=== PATIENT | male | born 1955 | race Caucasian/White ===

== ENCOUNTER 2023-06-11 13:42 | Outpatient (OUT) | payer MEDICARE, OTHER, SELFPAY ==
[2023-06-11 14:24] LABS: Estimated Average Glucose 192 mg/dL; Glycohemoglobin A1C 8.3 % (4.5-6.2)
== END 2023-06-11 13:43 | disposition home or self-care (01) ==
LOC: LAB 13:48
PROVIDERS: PCP Internal Medicine; Visit Provider Internal Medicine
DX: E11.65 Type 2 diabetes mellitus with hyperglycemia (principal)
CPT/HCPCS: 36415; 83036

== ENCOUNTER 2023-10-15 12:04 | Outpatient (OUT) | payer MEDICARE, OTHER, SELFPAY ==
[2023-10-15 12:24] LABS: Basophils Absolute Auto 0.1 10^3/uL (0.0-0.1); Basophils Percent Auto 0.9 % (0.2-2.0); Eosinophils Absolute Auto 0.2 10^3/uL (0.0-0.7); Hematocrit 41.8 % (42.0-54.0); Hemoglobin 13.3 g/dL (14.0-18.0); Immature Granulocytes Abs Auto 0.01 10^3/uL (0.00-0.03); Immature Granulocytes Pct Auto 0.2 % (0.0-0.5); Lymphocytes Absolute Auto 1.6 10^3/uL (1.2-3.8); Mean Corpuscular HGB Conc 31.8 g/dL (29.9-35.2); Mean Corpuscular Hemoglobin 30.2 pg (25.9-34.0); Mean Platelet Volume 10.6 fL (9.5-13.5); Monocytes Absolute Auto 0.3 10^3/uL (0.3-0.8); Monocytes Percent Auto 5.9 % (1.7-12.0); Neutrophils Absolute Auto 3.6 10^3/uL (1.4-6.5); Platelet Count 212 10^3/uL (150-450); Red Cell Distribution Width 12.2 % (11.0-15.0); White Blood Count 5.8 10^3/uL (4.0-11.0)
[2023-10-15 13:32] LABS: Prostate Specific Antigen Scrn 1.39 ng/mL (<=4.00)
[2023-10-15 13:43] LABS: Microalbumin Urine Random 2.5 mg/dL (<=30.0)
[2023-10-15 13:45] LABS: Anion Gap 13.3; BUN Creatinine Ratio 19.2; Calcium 9.3 mg/dL (8.5-10.1); Carbon Dioxide 28.7 mmol/L (21.0-32.0); Chloride 103 mmol/L (98-107); Chol HDL Ratio 2.7; Cholesterol 131 mg/dL (<=200); Estimated GFR (African America >60 (>=60); Estimated GFR (Non-African Ame >60 (>=60); Glucose 205 mg/dL (74-106); HDL Cholesterol 48 mg/dL (40-60); Sodium 141 mmol/L (136-145); Triglycerides 140 mg/dL (<=150)
[2023-10-15 13:48] LABS: Estimated Average Glucose 174 mg/dL; Glycohemoglobin A1C 7.7 % (4.5-6.2)
== END 2023-10-15 12:05 | disposition home or self-care (01) ==
LOC: LAB 12:05
PROVIDERS: PCP Internal Medicine; Visit Provider Internal Medicine
DX: Z00.00 Encounter for general adult medical examination without abnormal findings (principal); E11.42 Type 2 diabetes mellitus with diabetic polyneuropathy; E78.2 Mixed hyperlipidemia; Z12.5 Encounter for screening for malignant neoplasm of prostate; R53.83 Other fatigue
CPT/HCPCS: 36415; 80048; 80061; 82043; 83036; 85025; G0103

== ENCOUNTER 2024-06-12 12:43 | Outpatient (OUT) | payer MEDICARE, OTHER, SELFPAY ==
--- OUTSIDE RECORDS SUMMARY | 2024-06-12 12:50 | XMS_ITS | CCD ---
Author Organization [facility] Care Team Providers Care Patient Service Specialist Name Role Phone Darvin Kothari Unavailable Kassi Ramirez Unavailable ISRAEL, DR PATEL Attending Unavailable ISRAEL, DR PATEL Consulting Unavailable ISRAEL, DR PATEL Primary Care Unavailable ISRAEL, DR PATEL Admitting Unavailable Eugene Culver Unavailable Lainey Blanton Attending Unavailable Lainey Blanton Admitting Unavailable Eugene Culver Primary Care Unavailable Allergies Allergy Classification Reported Allergen(s) Allergy Type Date of Onset Reaction(s) Facility (20 sources) Penicillin V Drug Allergy Unknown [facility] Other (3 sources) patient allergy list reviewed by nurse or physicia Propensity to adverse reactions 3 Comment:Done [facility] Other (1 source) Penicillin Drug Allergy 4 [facility] (1 source) Penicillins Drug allergy (disorder) 4 [facility] Medications Current Medications Medication Drug Class(es) Dates Sig (Normalized) Sig (Original) Accu-Chek Compact Plus (12 sources) Accu-Chek Compac t Plus TEST STRIPES Active atorvastatin 40 mg oral tablet (20 sources) HMG-CoA Reductase Inhibitor take 1 tablet by mouth every twenty-four hours Atorvastatin Calcium 40 MG 1 tablet Orally Once a day for 90 days Active escitalopram 10 mg oral tablet (13 sources) Serotonin Reuptake Inhibitor take 0.5 tablet by mouth once daily, then take 1 tablet by mouth once daily at bedtime Escitalopram Oxalate 10 MG TAKE 1/2 TABLET BY MOUTH DAILY FOR THE FIRST WEEK, THEN TAKE ONE TABLET BY MOUTH EVERY NIGHT AT BEDTIME for 30 Active take 1 tablet by brennan th every twenty-four hours Escitalopram Oxalate 10 MG 1 tablet Oral ly Once a day Active glimepiride 4 mg oral tablet (20 sources) Sulfonylurea Glimepiride 4 MG 1 1/2 tablet taken 30 minutes prior to bkfst Orally Once a day Active take 1 tablet by brennan th every twenty-four hours Glimepiride 2 MG 1 tablet with breakfast or the first main meal of the day Orally Once a day Active take 1 tablet by brennan th every twenty-four hours Glimepiride 1 MG 1 tablet with breakfast or the first main meal of the day Orally Once a day Active metFORMIN hydrochloride 500 mg oral tablet (20 sources) Biguanide take 1 tablet by mouth twice daily metFORMIN HCl 500 MG TAKE ONE TABLET BY MOUTH TWICE A DAY Active take 2 tablets by mo ut every twenty-four hours metFORMIN HCl 500 MG 2 tablet with a meal Orally Once a day Active take 1 tablet by brennan th every twenty-four hours metFORMIN HCl 500 MG 1 tablet with a meal Orally Once a day Active metroNIDAZOLE 500 mg oral tablet (2 sources) Nitroimidazole Antimicrobial Start: 09-10-2023 take 1 tablet by mouth every eight hours metroNIDAZOLE 500 MG 1 tablet Orally Three times a day for 7 days Aug, Active pioglitazone 30 mg oral tablet (9 sources) Peroxisome Proliferator Receptor alpha Agonist, Peroxisome Proliferator Receptor gamma Agonist, Thiazolidinedione Start: 10-19-2023 take 1 tablet by mouth every twenty-four hours Pioglitazone HCl 30 MG 1 tablet Orally Once a day for 30 days Oct, Active Start: 06-11-2023 take 1 tablet by brennan th every twenty-four hours Pioglitazone HCl 15 MG 1 tablet Orally Once a day May, Active sildenafil 100 mg oral tablet (12 sources) Phosphodiesterase 5 Inhibitor take 1 tablet by mouth every twenty-four hours Sildenafil Citrate 100 MG 1 tablet as needed Orally Once a day Active Completed/Discontinued Medications Medication Drug Class(es) Dates Sig (Normalized) Sig (Original) Aspir-81 81 MG (20 sources) take 1 tablet by brennan th once daily as needed Aspir-81 81 MG 1 tablet Orally Once a day for 30 day(s) Not-Taking/PRN take 1 tablet by mouth once aayush y Aspir-81 81 MG 1 tablet Orally Once a day for 30 day(s) Not-Taking take 1 tablet by mouth once aayush y Aspir-81 81 MG 1 tablet Orally Once a day for 30 day(s) Active diclofenac sodium 75 mg delayed release oral tablet (20 sources) Nonsteroidal Anti-inflammatory Drug take 1 tablet by mouth every twenty-four hours Diclofenac Sodium 75 MG 1 tablet Orally Once a day for 30 day(s) Not-Taking/PRN Doxycycline (13 sources) Tetracycline-class Drug Doxycycl ine Not-Taking/PRN Doxycycline Not- Taking Doxycycline Acti ve TENS Unit (19 sources) Start: 08-28-2021 TENS Unit Use as directed. Aug, Not-Taking/PRN Start: 08-28-2021 TENS Unit Use as directed. Aug, Not-Taking Start: 08-28-2021 TENS Unit Use as directed. Aug, Active Triamcinolone (16 sources) Corticosteroid Start: 12-22-2021 Kenalog -40 mg Dec, 60 mg Problems Active Problems Problem Classification Problem Date Documented Date Episodic/Chronic Anxiety disorders (17 sources) Generalized anxiety disorder; Translations: [Generalized anxiety disorder] Chronic Diabetes mellitus with complications (20 sources) Type 2 diabetes mellitus with hyperglycemia; Translations: [Polyneuropathy due to type 2 diabetes mellitus] Onset: 07-08-2022 Chronic Diabetes mellitus without complication (3 sources) Type 2 diabetes mellitus without complication; Translations: [Diabetes mellitus without mention of complication, type II or unspecified type, not stated as uncontrolled] Onset: 07-18-2014 Chronic Disorders of lipid metabolism (20 sources) Mixed hyperlipidemia; Translations: [Mixed hyperlipidemia] Onset: 07-18-2014 Chronic Disorders of teeth and jaw (6 sources) Periapical abscess without sinus tract; Translations: [Abscessed tooth] Episodic Essential hypertension (11 sources) Essential (primary) hypertension; Translations: [Essential hypertension] Onset: 07-07-2022 Chronic Genitourinary symptoms and ill-defined conditions (12 sources) Nocturia; Translations: [Nocturia] Episodic Headache; including migraine (3 sources) Headache; Translations: [Headache, unspecified] Episodic Hyperplasia of prostate (20 sources) Lower urinary tract symptoms due to benign prostatic hypertrophy; Translations: [Benign prostatic hyperplasia with lower urinary tract symptoms] Onset: 07-18-2014 Chronic Malaise and fatigue (1 source) Other fatigue Episodic Neoplasms of unspecified nature or uncertain behavior (3 sources) Neoplastic disease of uncertain behavior; Translations: [Neoplasm of unspecified behavior of bone, soft tissue, and skin] Episodic Osteoarthritis (7 sources) Localized, primary osteoarthritis of the hand; Translations: [Primary osteoarthritis, right hand] Chronic Other aftercare (1 source) Other long distance operator (current) drug therapy; Translations: [OTH MARKETING TRAINEE CURRENT DRUG THERAPY] Onset: 07-08-2022 Episodic Other aftercare (12 sources) H/O: high risk medication; Translations: [Other residential (current) drug therapy] Episodic Other aftercare (3 sources) Long-term current use of drug therapy; Translations: [Other long distance operator (current) drug therapy] Episodic Other circulatory disease (1 source) Elevated blood-pressure reading, without diagnosis of hypertension Episodic Other connective tissue disease (10 sources) Myofascial pain; Translations: [Myalgia, other site] Episodic Other connective tissue disease (18 sources) Dupuytren's contracture; Translations: [Palmar fascial fibromatosis [Dupuytren]] Episodic Other connective tissue disease (1 source) Trigger finger, right index finger Episodic Other connective tissue disease (2 sources) Palmar fascial fibromatosis [Dupuytren] Episodic Other diseases of veins and lymphatics (18 sources) Peripheral venous insufficiency; Translations: [Venous insufficiency (chronic) (peripheral)] Onset: 04-28-2016 Episodic Other diseases of veins and lymphatics (1 source) Venous insufficiency (chronic) (peripheral) Episodic Other injuries and conditions due to external causes (3 sources) History of fall; Translations: [History of falling] Episodic Other male genital disorders (15 sources) Impotence of organic origin; 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] Onset: 04-28-2016 Chronic Other nervous system disorders (13 sources) Chronic pain; Translations: [Other chronic pain] Chronic Other nervous system disorders (7 sources) Other chronic pain; Translations: [Chronic pain G89.29] Onset: 08-01-2021 Resolved: 01-19-2022 Chronic Other nervous system disorders (6 sources) Intercostal neuralgia; 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] Chronic Other nervous system disorders (1 source) Other specified mononeuropathies Onset: 01-19-2022 Resolved: 01-19-2022 Chronic Other nutritional; endocrine; and metabolic disorders (9 sources) Obese class I; Translations: [Body mass index (BMI) 32.0-32.9, adult] Onset: 10-18-1959 Chronic Other nutritional; endocrine; and metabolic disorders (3 sources) Obesity; Translations: [Obesity, unspecified] Chronic Other nutritional; endocrine; and metabolic disorders (3 sources) Simple obesity ; Translations: [Other obesity due to excess calories] Onset: 10-18-1959 Chronic Other nutritional; endocrine; and metabolic disorders (15 sources) Overweight; Translations: [Overweight] Onset: 03-28-2021 Episodic Other nutritional; endocrine; and metabolic disorders (1 source) Overweight Episodic Other screening for suspected conditions (not mental disorders or infectious disease) (15 sources) Encounter for screening for malignant neoplasm of prostate; Translations: [Prostate specific antigen measurement] Onset: 07-08-2022 Episodic Other upper respiratory infections (3 sources) Acute maxillary sinusitis; Translations: [Acute maxillary sinusitis, unspecified] Episodic Spondylosis; intervertebral disc disorders; other back problems (20 sources) Cervical spondylosis with radiculopathy; Translations: [Other spondylosis with radiculopathy, cervical region] Onset: 08-01-2021 Resolved: 12-17-2021 Chronic Spondylosis; intervertebral disc disorders; other back problems (20 sources) Dorsalgia, unspecified; Translations: [Backache] Onset: 08-14-2021 Resolved: 12-22-2021 Episodic Substance-related disorders (12 sources) Tobacco user; Translations: [Nicotine dependence, cigarettes, in remission] Chronic Unclassified (5 sources) Gingival recession, moderate; Translations: [Gingival recession, moderate] Unclassified (1 source) Contact with and (suspected) exposure to covid-19; Translations: [Contact with and (suspected) exposure to covid-19] Unclassified (3 sources) Elevation of levels of liver transaminase levels; Translations: [Elevation of levels of liver transaminase levels] Unclassified (1 source) Primary osteoarthritis, right hand; Translations: [Primary osteoarthritis, right hand] Onset: 12-22-2023 Past or Other Problems Problem Classification Problem Date Documented Date Episodic/Chronic Other connective tissue disease (3 sources) Myalgia, other site Onset: 08-28-2021 Resolved: 01-19-2022 Episodic Other liver diseases (3 sources) Elevated levels of transaminase & lactic acid dehydrogenase; Translations: [Nonspecific elevation of levels of transaminase or lactic acid dehydrogenase (LDH)] Onset: 01-29-2016 Episodic Other nervous system disorders (5 sources) Atypical facial pain; Translations: [Atypical face pain] Episodic Residual codes; unclassified (3 sources) Tobacco user; Translations: [Nondependent tobacco use disorder] Onset: 01-29-2016 Episodic Unclassified (1 source) Contact with and (suspected) exposure to covid-19 Z20.822 Onset: 06-21-2022 Resolved: 06-21-2022 Unclassified (3 sources) Exposure to acute respiratory syndrome coronavirus 2; Translations: [Contact with and (suspected) exposure to covid-19] Unclassified (12 sources) Elevated transaminase level; Translations: [Elevated transaminase level] Viral infection (1 source) COVID-19 Onset: 06-21-2022 Resolved: 06-21-2022 Results Test Name Value Interpretation Reference Range Facility XR hand RT min 3V*on 024 XR hand RT min 3V* [facility] Main [place] [address] [place] [address] XRay Report Signed Patient: Max Chavira MR#: [id number] : 1955 Acct:[id number] Age/Sex: 68 / M ADM Date: 12/22/23 Loc: [facility] Room: Type: [facility] Attending Dr: Lainey Blanton MD Copies to: Lainey Blanton MD Ordering Provider: Lainey Blanton MD Date of Service: 12/22/23 XR/XR hand RT min 3V*: M19.041 - Primary osteoarthritis, right hand RIGHT HAND - 4 views REASON FOR EXAM: Second digit contracture for 3 years COMPARISON: None FINDINGS: No focal soft tissue abnormality. No acute bony process is seen. Carpus demonstrates degenerative changes most prominent at the CMC joint of the thumb. MCP joints demonstrate degenerative change with joint space narrowing particularly involving the second and third MCP joints. IP joints demonstrate degenerative change most prominent involving the DIP joints. No bony erosions. XR/XR hand RT min 3V* IMPRESSION: SCATTERED DEGENERATIVE CHANGES MOST SEVERE AT THE CMC JOINT OF THE THUMB OF THE RIGHT HAND WITHOUT ACUTE BONY PROCESS. Impression dictated by: Edwin Leung Jr., D.OFran12/22/2023 3:45 PM Dictation Location: [place] [address] Transcribed By: [facility] 12/22/23 1545 Dictated By: Edwin Leung Jr, DO 12/22/23 1544 Signed By: 12/22/23 1545 Normal [facility] MICROALBUMIN URINEon 022 Albumin, Urine 52.2 ug/mL Normal Not Estab. [facility] Comment on above: Performed By: #### M ALBLC #### [facility] [address] [place] [address] Dr. Anne-Marie Parikh CBC AUTO DIFFon 07-07-2022 BASO # 0.0 103/ul Normal 0.0-0.1 [facility] Comment on above: Performed By: #### C BC #### [facility] [address] [place] [address] Dr. Anne-Marie Parikh Basophils/100 WBC (Bld) 0.6 % Normal 0.2-2.0 [facility] Comment on above: Performed By: #### C BC #### [facility] [address] [place] [address] Dr. Anne-Marie Parikh EO # 0.1 103/ul Normal 0.0-0.7 [facility] Comment on above: Performed By: #### C BC #### [facility] [address] [place] [address] Dr. Anne-Marie Parikh Eosinophils/100 WBC (Bld) 1.9 % Normal 0.9-7.0 [facility] Comment on above: Performed By: #### C BC #### [facility] [address] [place] [address] Dr. Anne-Marie Parikh Erythrocyte distribution width (RBC) [Ratio] 11.9 % Normal 11.0-15.0 [facility] Comment on above: Performed By: #### C BC #### [facility] [address] [place] [address] Dr. Anne-Marie Parikh Hematocrit (Bld) [Volume fraction] 43.1 % Normal 42.0-54.0 [facility] Comment on above: Performed By: #### C BC #### [facility] [address] [place] [address] Dr. Anne-Marie Parikh Hemoglobin (Bld) [Mass/Vol] 14.0 g/dL Normal 14.0-18.0 [facility] Comment on above: Performed By: #### C BC #### [facility] [address] [place] [address] Dr. Anne-Marie Parikh IG # 0.03 10e3/ul Normal 0.00-0.03 [facility] Comment on above: Performed By: #### C BC #### [facility] [address] [place] [address] Dr. Anne-Marie Parikh IG % 0.4 % Normal 0.0-0.5 [facility] Comment on above: Performed By: #### C BC #### [facility] [address] [place] [address] Dr. Anne-Marie Parikh LYMPH # 1.5 103/ul Normal 1.2-3.8 [facility] Comment on above: Performed By: #### C BC #### [facility] [address] [place] [address] Dr. Anne-Marie Parikh Lymphocytes/100 WBC (Bld) 21.1 % Normal 20.5-60.0 [facility] Comment on above: Performed By: #### C BC #### [facility] [address] [place] [address] Dr. Anne-Marie Parikh MANUAL DIFF REQ NO Normal [facility] Comment on above: Performed By: #### C BC #### [facility] [address] [place] [address] Dr. Anne-Marie Parikh MCH (RBC) [Entitic mass] 29.5 pg Normal 25.9-34.0 [facility] Comment on above: Performed By: #### C BC #### [facility] [address] [place] [address] Dr. Anne-Marie Parikh MCHC (RBC) [Mass/Vol] 32.5 g/dL Normal 29.9-35.2 [facility] Comment on above: Performed By: #### C BC #### [facility] [address] [place] [address] Dr. Anne-Marie Parikh MCV (RBC) [Entitic vol] 90.9 fL Normal 80.0-94.0 [facility] Comment on above: Performed By: #### C BC #### [facility] [address] [place] [address] Dr. Anne-Marie Parikh MONO # 0.5 103/ul Normal 0.3-0.8 [facility] Comment on above: Performed By: #### C BC #### [facility] [address] [place] [address] Dr. Anne-Marie Parikh Monocytes/100 WBC (Bld) 6.5 % Normal 1.7-12.0 [facility] Comment on above: Performed By: #### C BC #### [facility] [address] [place] [address] Dr. Anne-Marie Parikh NEUT # 5.0 103/ul Normal 1.4-6.5 [facility] Comment on above: Performed By: #### C BC #### [facility] [address] [place] [address] Dr. Anne-Marie Parikh Neutrophils/100 WBC (Bld) 69.5 % Normal 43.0-75.0 [facility] Comment on above: Performed By: #### C BC #### [facility] [address] [place] [address] Dr. Anne-Marie Parikh Platelet mean volume (Bld) [Entitic vol] 10.3 fL Normal 9.5-13.5 [facility] Comment on above: Performed By: #### C BC #### [facility] [address] [place] [address] Dr. Anne-Marie Parikh PLT 227 103/ul Normal 150-450 [facility] Comment on above: Performed By: #### C BC #### [facility] [address] [place] [address] Dr. Anne-Marie Parikh RBC 4.74 106/ul Normal 4.70-6.10 [facility] Comment on above: Performed By: #### C BC #### [facility] [address] [place] [address] Dr. Anne-Marie Parikh WBC 7.2 103/ul Normal 4.0-11.0 [facility] Comment on above: Performed By: #### C BC #### [facility] [address] [place] [address] [address] Anne-Marie Parikh GLYCOHEMOGLOBIN A1Con 2021 ADA RECOMMENDATION SEE BELOW Normal [facility] Comment on above: Result Comment: ADA RECOMMENDED LIMIT 4.0 - 6.0 ADA THERAPEUTIC TARGET < 7.0 ACTION SUGGESTED > 7.0 Performed By: #### A 1C #### [facility] [address] [place] [address] [address] Anne-Marie Parikh Glucose [Mass/Vol] 180 mg/dL Normal [facility] Comment on above: Performed By: #### A 1C #### [facility] [address] [place] [address] Dr. Anne-Marie Parikh HbA1c (Bld) [Mass fraction] 7.9 % Critically high 4.5-6.2 [facility] Comment on above: Performed By: #### A 1C #### [facility] [address] [place] [address] Dr. Anne-Marie Parikh LIPID PROFILEon 07-07-2022 CHOL-HDL RATIO NORM SEE BELOW Normal [facility] Comment on above: Result Comment: 3.3 - 4.4 LOW RISK 4.4 - 7.1 AVERAGE RISK 7.1 - 11.0 MODERATE RISK >11.0 HIGH RISK Performed By: #### A LT, LIPID, BMP #### [facility] [address] [place] [address] Dr. Anne-Marie Parikh Cholesterol [Mass/Vol] 143 mg/dL Normal <=200 [facility] Comment on above: Performed By: #### A LT, LIPID, BMP #### [facility] [address] [place] [address] Dr. Anne-Marie Parikh Cholesterol in HDL [Mass/Vol] 48 mg/dL Normal 40-60 [facility] Comment on above: Performed By: #### A LT, LIPID, BMP #### [facility] [address] [place] [address] Dr. Anne-Marie Parikh Cholesterol in LDL [Mass/Vol] 73.4 mg/dL Normal [facility] Comment on above: Performed By: #### A LT, LIPID, BMP #### [facility] [address] [place] [address] [address] Anne-Marie Parikh Cholesterol.total/Ch olesterol in HDL [Mass ratio] 3.0 {ratio} Normal [facility] Comment on above: Performed By: #### A LT, LIPID, BMP #### [facility] [address] [place] [address] [address] Anne-Marie Parikh HDL NORMAL > or = 60 mg/dl - LOW CARDIOVASCULAR RISK <40 mg/dl - HIGH CARDIOVASCULAR RISK Normal [facility] Comment on above: Performed By: #### A LT, LIPID, BMP #### [facility] [address] [place] [address] Dr. Anne-Marie Parikh LDL CALC NORMAL SEE BELOW Normal [facility] Comment on above: Result Comment: <100 mg/dl OPTIMAL 100 - 129 mg/dl NEAR OR ABOVE OPTIMAL 130 - 159 mg/dl BORDERLINE HIGH 160 - 189 mg/dl HIGH >190 mg/dl VERY HIGH Performed By: #### A LT, LIPID, BMP #### [facility] [address] [place] [address] Dr. Anne-Marie Parikh Triglyceride [Mass/Vol] 108 mg/dL Normal <=150 [facility] Comment on above: Performed By: #### A LT, LIPID, BMP #### [facility] [address] [place] [address] Dr. Anne-Marie Parikh VLDL CALC 21.6 mg/dL Normal [facility] Comment on above: Performed By: #### A LT, LIPID, BMP #### [facility] [address] [place] [address] Dr. Anne-Marie Parikh PROF CHEM 8 (BAS METB)on Anion gap [Moles/Vol] 12.0 mmol/L Normal [facility] Comment on above: Performed By: #### A LT, LIPID, BMP #### [facility] [address] [place] [address] Dr. Anne-Marie Parikh Calcium [Mass/Vol] 9.0 mg/dL Normal 8.5-10.1 [facility] Comment on above: Performed By: #### A LT, LIPID, BMP #### [facility] [address] [place] [address] [address] Anne-Marie Parikh Chloride [Moles/Vol] 104 mmol/L Normal 98-107 [facility] Comment on above: Performed By: #### A LT, LIPID, BMP #### [facility] [address] [place] [address] [address] Anne-Marie Parikh CO2 [Moles/Vol] 28.2 mmol/L Normal 21.0-32.0 [facility] [facility] Comment on above: Performed By: #### A LT, LIPID, BMP #### [facility] [address] [address] [address] Anne-Marie Parikh Creatinine [Mass/Vol] 0.88 mg/dL Normal 0.70-1.30 [facility] [place] Comment on above: Performed By: #### A LT, LIPID, BMP #### [facility] [address] [place] [address] Dr. Anne-Marie Parikh EGFR-AF PERUVIAN >60 Normal >=60 [facility] Comment on above: Performed By: #### A LT, LIPID, BMP #### [facility] [address] [place] [address] Dr. Anne-Marie Parikh EGFR-NON AF PERUVIAN >60 Normal >=60 [facility] [place] Comment on above: Performed By: #### A LT, LIPID, BMP #### [facility] [address] [address] [address] Anne-Marie Parikh Glucose [Mass/Vol] 190 mg/dL Critically high 74-106 [facility] Comment on above: Performed By: #### A LT, LIPID, BMP #### [facility] [address] [address] [address] Anne-Marie Parikh Potassium [Moles/Vol] 4.2 mmol/L Normal 3.5-5.1 [facility] [place] Comment on above: Performed By: #### A LT, LIPID, BMP #### [facility] [address] [address] [address] Anne-Marie Parikh Sodium [Moles/Vol] 140 mmol/L Normal 136-145 [facility] Comment on above: Performed By: #### A LT, LIPID, BMP #### [facility] [address] [address] [address] Anne-Marie Parikh Urea nitrogen [Mass/Vol] 10.0 mg/dL Normal 7.0-18.0 [facility] [place] Comment on above: Performed By: #### A LT, LIPID, BMP #### [facility] [address] [address] [address] Anne-Marie Parikh Urea nitrogen/Creatinine [Mass ratio] 11.4 mg/mg Normal [facility] [place] Comment on above: Performed By: #### A LT, LIPID, BMP #### [facility] [address] [address] [address] Anne-Marie Parikh [facility] 07-07-2022 ALT [Catalytic activity/Vol] 45 U/L Normal 16-63 [facility] [place] Comment on above: Performed By: #### A LT, LIPID, BMP #### [facility] [address] [address] [address] Anne-Marie Parikh SARS-CoV-2 (COVID-19) RNA NA A+probe Ql (Resp)on 06-21-2022 SARS-CoV-2 (COVID-19) RNA NADJA+probe Ql (Unsp spec) Positive [facility] Other Vital Signs Date Time Vital Sign Value Performing Clinician Facility 09-10-2023 11:45-0500 Body height 184.78 cm Eugene FeeFighters Other [facility] Other 09-10-2023 11:45-0500 Body mass index (BMI) [Ratio] 30.79 kg/m2 Eugene FeeFighters Other [facility] Other 09-10-2023 11:45-0500 Body weight 105.14 kg Eugene FeeFighters Other [facility] Other 09-10-2023 11:45-0500 Diastolic blood pressure 71 mm[Hg] Eugene FeeFighters Other [facility] Other 09-10-2023 11:45-0500 Systolic blood pressure 116 mm[Hg] Eugene Ball Other [facility] Other 07-09-2023 09:30-0400 Body height 184.78 cm Eugene Ball Other [facility] Other 07-09-2023 09:30-0400 Body mass index (BMI) [Ratio] 30.39 kg/m2 Eugene Ball Other [facility] Other 07-09-2023 09:30-0400 Body weight 103.78 kg Eugene Ball Other [facility] Other 07-09-2023 09:30-0400 Diastolic blood pressure 75 mm[Hg] Eugene Ball Other [facility] Other 07-09-2023 09:30-0400 Respiratory rate 12 /min Eugene Ball Other [facility] Other 07-09-2023 09:30-0400 Systolic blood pressure 129 mm[Hg] Eugene Ball Other [facility] Other 11-06-2022 10:00-0500 Body height 184.78 cm Eugene Ball Other [facility] Other 11-06-2022 10:00-0500 Body mass index (BMI) [Ratio] 28.98 kg/m2 Eugene Ball Other [facility] Other 11-06-2022 10:00-0500 Body weight 98.98 kg Eugene Ball Other [facility] Other 11-06-2022 10:00-0500 Diastolic blood pressure 62 mm[Hg] Eugene Ball Other [facility] Other 11-06-2022 10:00-0500 Respiratory rate 12 /min Eugene Ball Other [facility] Other 11-06-2022 10:00-0500 Systolic blood pressure 112 mm[Hg] Eugene Ball Other [facility] Other 06-21-2022 15:10-0400 Body height 184.78 cm Kassi Ramirez Other [facility] Other 06-21-2022 15:10-0400 Body mass index (BMI) [Ratio] 28.03 kg/m2 Kassi Ashley Other [facility] Other 06-21-2022 15:10-0400 Body temperature 97.1 [degF] Kassi Carrizalesmond Other [facility] Other 06-21-2022 15:10-0400 Body weight 95.71 kg Kassi Carrizalesmond Other [facility] Other 06-21-2022 15:10-0400 Respiratory rate 18 /min Kassi Carrizalesmond Other [facility] Other 06-21-2022 15:10-0400 SaO2% (BldA) [Mass fraction] 94 % Kassi Carrizalesmond Other [facility] Other 01-19-2022 17:30-0400 Body height 184.78 cm Darvin Kothari Other [facility] Other 01-19-2022 17:30-0400 Body mass index (BMI) [Ratio] 28.08 kg/m2 Darvin Kothari Other [facility] Other 01-19-2022 17:30-0400 Body weight 95.89 kg Darvin Kothari Other [facility] Other 01-19-2022 17:30-0400 Diastolic blood pressure 62 mm[Hg] Darvin Taye Other [facility] Other 01-19-2022 17:30-0400 SaO2% (BldA) [Mass fraction] 97 % Darvin Taye Other [facility] Other 01-19-2022 17:30-0400 Systolic blood pressure 104 mm[Hg] Darvin Taye Other [facility] Other 12-22-2021 17:00-0500 Body height 184.78 cm Darvin Kothari Other [facility] Other 12-22-2021 17:00-0500 Diastolic blood pressure 60 mm[Hg] Darvin Taye Other [facility] Other 12-22-2021 17:00-0500 SaO2% (BldA) [Mass fraction] 97 % Darvin Taye Other [facility] Other 12-22-2021 17:00-0500 Systolic blood pressure 110 mm[Hg] Darvin Taye Other [facility] Other 12-17-2021 14:00-0500 Body height 184.78 cm Darvin Kothari Other [facility] Other 12-17-2021 14:00-0500 Body mass index (BMI) [Ratio] 28.61 kg/m2 Darvin Kothari Other [facility] Other 12-17-2021 14:00-0500 Body weight 97.71 kg Darvin Kothari Other [facility] Other 12-17-2021 14:00-0500 Diastolic blood pressure 68 mm[Hg] Darvin Taye Other [facility] Other 12-17-2021 14:00-0500 SaO2% (BldA) [Mass fraction] 95 % Darvin Kothari Other [facility] Other 12-17-2021 14:00-0500 Systolic blood pressure 124 mm[Hg] Darvin Kothari Other [facility] Other 09-29-2021 17:45-0500 Body height 184.78 cm Darvin Kothari Other [facility] Other 09-29-2021 17:45-0500 Body mass index (BMI) [Ratio] 27.89 kg/m2 Darvinrufina Kothari Other [facility] Other 09-29-2021 17:45-0500 Body weight 95.26 kg Darvin Kothari Other [facility] Other 09-29-2021 17:45-0500 SaO2% (BldA) [Mass fraction] 98 % Darvin Kothari Other [facility] Other 08-28-2021 17:15-0500 Body height 184.78 cm Darvin Kothari Other [facility] Other 08-28-2021 17:15-0500 Body mass index (BMI) [Ratio] 27.76 kg/m2 Darvin Kothari Other [facility] Other 08-28-2021 17:15-0500 Body weight 94.8 kg Darvin Kothari Other [facility] Other 08-28-2021 17:15-0500 Diastolic blood pressure 80 mm[Hg] Darvin Kothari Other [facility] Other 08-28-2021 17:15-0500 Systolic blood pressure 110 mm[Hg] Darvin Kothari Other [facility] Other 08-14-2021 17:45-0400 Body height 184.78 cm Darvin Kothari Other [facility] Other 08-14-2021 17:45-0400 Body mass index (BMI) [Ratio] 28.19 kg/m2 Darvin Kothari Other [facility] Other 08-14-2021 17:45-0400 Body weight 96.25 kg Darvin Kothari Other [facility] Other 08-14-2021 17:45-0400 Diastolic blood pressure 72 mm[Hg] Darvin Kothari Other [facility] Other 08-14-2021 17:45-0400 Respiratory rate 18 /min Darvin Kothari Other [facility] Other 08-14-2021 17:45-0400 SaO2% (BldA) [Mass fraction] 95 % Darvin Kothari Other [facility] Other 08-14-2021 17:45-0400 Systolic blood pressure 126 mm[Hg] Darvin Kothari Other [facility] Other 08-01-2021 12:00-0400 Body height 184.78 cm Darvin Kothari Other [facility] Other 08-01-2021 12:00-0400 Body mass index (BMI) [Ratio] 28.16 kg/m2 Darvin Kothari Other [facility] Other 08-01-2021 12:00-0400 Body weight 96.16 kg Darvin Kothari Other [facility] Other 08-01-2021 12:00-0400 Diastolic blood pressure 80 mm[Hg] Darvin Kothari Other [facility] Other 08-01-2021 12:00-0400 Systolic blood pressure 134 mm[Hg] Darvin Kothari Other [facility] Other Encounters Encounter Date Encounter Type Care Provider Facility Start: 12-22-2023 End: 12-22-2023 ambulatory Lainey Blanton Facility:[facility] Start: 10-16-2023 End: 10-16-2023 ambulatory Eugene Culver Other [facility] Start: 10-16-2023 Telephone encounter Eugene Culver [facility] Start: 09-10-2023 End: 09-10-2023 ambulatory Eugene Ball Other [facility] Start: 09-10-2023 Office outpatient vi sit 15 minutes Eugene Israel [facility] Start: 08-02-2023 End: 08-02-2023 ambulatory Eugene Ball Other [facility] Start: 08-02-2023 Telephone encounter Eugene Culver [facility] Start: 07-22-2023 End: 07-22-2023 ambulatory Eugene Ball Other [facility] Other Start: 07-22-2023 Telephone encounter Eugene Culver [facility] Start: 07-14-2023 End: 07-14-2023 ambulatory Eugene Ball Other [facility] Start: 07-14-2023 Telephone encounter Eugene Ball [facility] Start: 07-09-2023 End: 07-09-2023 ambulatory Eugene Ball Other [facility] Start: 07-09-2023 Patient encounter procedure Eugene Culver [facility] Start: 07-06-2023 End: 07-06-2023 ambulatory Eugene Ball Other [facility] Start: 07-06-2023 Telephone encounter Eugene Ball [facility] Start: 06-14-2023 End: 06-14-2023 ambulatory Eugeen Ball Other [facility] Other Start: 06-14-2023 Telephone encounter Eugene Ball [facility] Start: 06-11-2023 End: 06-11-2023 ambulatory Eugene Ball Other [facility] Start: 06-11-2023 Telephone encounter Eugene Ball [facility] Start: 02-18-2023 End: 02-18-2023 ambulatory Eugene Ball Other [facility] Other Start: 02-18-2023 Telephone encounter Eugene Ball [facility] Start: 11-09-2022 End: 11-09-2022 ambulatory Eugene Ball Other [facility] Start: 11-09-2022 Telephone encounter Eugene Ball [facility] Start: 11-06-2022 End: 11-06-2022 ambulatory Eugene Culver Other [facility] Other Start: 11-06-2022 Office outpatient vi sit 25 minutes Eugene LAW [facility] Start: 07-07-2022 End: 07-08-[address] EUGENE CULVER Facility: Start: 06-21-2022 End: 06-21-2022 ambulatory Kassi Ramirez Other [facility] Start: 06-21-2022 Office outpatient vi sit 25 minutes Kassi Ashley [facility] Start: 06-02-2022 Adult health examination Eugene Culver Other [facility] Other Start: 02-03-2022 (Procedure) Short Darvin Kothari [facility] Start: 02-03-2022 End: 02-03-2022 ambulatory Darvin Kothari Other [facility] Start: 01-19-2022 End: 01-19-2022 ambulatory Darvin Taye Other [facility] Start: 01-19-2022 Office outpatient vi sit 25 minutes Darvin Taye [facility] Start: 12-22-2021 End: 12-22-2021 ambulatory Darvinrufina Kothari Other [facility] Other Start: 12-22-2021 Patient encounter procedure Darvin Taye [facility] Start: 12-17-2021 End: 12-17-2021 ambulatory Darvin Taye Other [facility] Start: 12-17-2021 Office outpatient vi sit 25 minutes Darvin Taye [facility] Start: 09-29-2021 End: 09-29-2021 ambulatory Darvin Taye Other [facility] Start: 09-29-2021 Office outpatient vi sit 15 minutes Darvin Kothari [facility] Start: 08-28-2021 End: 08-28-2021 ambulatory Darvin Kothari Other [facility] Start: 08-28-2021 Office outpatient vi sit 25 minutes Darvin Kothari [facility] Start: 08-14-2021 Office outpatient vi sit 25 minutes Darvin Kothari [facility] Start: 08-07-2021 (Procedure) Short Darvin Kothari [facility] Start: 08-01-2021 Office outpatient ne w 45 minutes Darvin Kothari [facility] Procedures Date Procedure Procedure Detail Performing Clinician Start: 07-07-[address] [place] Comment on above: Performed By: #### P [facility] #### [facility] [address] [place] [address] Dr. Anne-Marie Parikh Start: 06-25-2016 Screening for malign ant neoplasm of colon Eugene Culver Other Start: 01-09-2016 General examination of patient Eugene Culver Other Depression screening Anne Culver Other Depression screening Anne Culver Other Replacement of total knee joint Darvin Kothari Other Screening for malign ant neoplasm of prostate Eugene Culver Other Immunizations Immunization Date Immunization Notes Care Provider Inna iraheta 10-26-2022 COVID-19 Pfizer (bivalent) Eugene Culver Other [facility] Other 08-17-2022 influenza virus vaccine, split virus (incl. purified surface antigen) Eugene Culver Other [facility] Other 08-01-2021 COVID-19 Vaccine Pfi zer - Documentation Purposes Only Eugene Culver Other [facility] Other 07-08-2021 influenza virus vaccine, split virus (incl. purified surface antigen) Eugene Culver Other [facility] Other 03-29-2021 pneumococcal polysaccharide vaccine, 23 valent Eugene Culevr Other [facility] Other 07-04-2020 influenza virus vaccine, split virus (incl. purified surface antigen) Eugene Culver Other [facility] Other 03-05-2020 pneumococcal conjuga te vaccine, 13 valent Eugene Culver Other [facility] Other Payers Date Payer Category Payer Self-pay 1961 Medicare [id number] [id number] [id number] 1961 Unknown [id number] 1955 Unknown [id number] Unknown [id number] Unknown [id number] Social History Date Type Detail Facility Sex Assigned At [facility] Other Medical Equipment Procedure Code Equipment Code Equipment Original Text Equi pment Identifier Dates Accu-Chek FastCl ix Lancet Drum Clinical Notes 08-07-2014 to 10-16-2023 Note Date & Type Note Facility 10-16-2023 Evaluation note Encounter Date Diagnosis Assessment Notes Sep, Type 2 diabetes mellitus with hyperglycemia , without long-term current use of insulin (ICD-10 - E11.65) [facility] Other [id number] Evaluation note* Encounter Date Diagnosis Assessment Notes Treatment Notes Treatment Clinical Notes Aug, Dental infection (ICD-10 - K04.7) Rinse mouth daily. F/U dentist for XR _update office next week. Diabetes increased risk for more serious, prolonged infection Aug, Type 2 diabetes mellitus with hyperglycemia, without long-term current use of insulin (ICD-10 - E11.65) This patient is following a comprehensive diabetic treatment plan. They are checking their feet daily for calluses and nonhealing ulcers. They are being seen for yearly dilated eye examinations. Goals: SBP less than 130, LDL less than 100, FBS less than 140, A1C less than 7%. They are checking their BS daily, will which are reviewed at the office visit. Continue regular routine monitoring of A1C,] Microalbumin, Dilated eye exam and Foot exam [facility] Other 10-16-2023 Evaluation note* Encounter Date Diagnosis Assessment Notes Treatment Notes Treatment Clinical Notes Jul, Type 2 diabetes mellitus with hyperglycemia, without long-term current use of insulin (ICD-10 - E11.65) [facility] Other 10-05-2023 Evaluation note* Encounter Date Diagnosis Assessment Notes Treatment Notes Treatment Clinical Notes Jul, Type 2 diabetes mellitus with hyperglycemia, without long-term current use of insulin (ICD-10 - E11.65) [facility] Other 09-27-2023 Evaluation note* Encounter Date Diagnosis Assessment Notes Treatment Notes Treatment Clinical Notes Jun, Hyperlipidemia, mixed (ICD-10 - E78.2) [facility] Other 09-22-2023 Evaluation note* Encounter Date Diagnosis Assessment Notes Treatment Notes Treatment Clinical Notes Jun, Medicare annual well ness visit, subsequent (ICD-10 - Z00.00) Personalized health advice was given to the beneficiary including a written plan for screenings discussed and provided. Advanced care planning reviewed and/or information given as requested. Additional counseling was provided here today in regards to, [ ]. The above visit was performed by [ ], under direct supervision of [ ]. Document reviewed and amended by provider signed below. Jun, Type 2 diabetes kacie itus with diabetic polyneuropathy, without long-term current use of insulin (ICD-10 - E11.42) Inspect feet daily for cuts and calluses.Recommend diabetic shoes and inserts to prevent callus formation.Fall precautions. Jun, Type 2 diabetes kacie itus with hyperglycemia, without long-term current use of insulin (ICD-10 - E11.65) This patient is following a comprehensive diabetic treatment plan. They are checking their feet daily for calluses and nonhealing ulcers. They are being seen for yearly dilated eye examinations. Goals: SBP less than 130, LDL less than 100, FBS less than 140, A1C less than 7%. They are checking their BS daily, will which are reviewed at the office visit. Continue regular routine monitoring of A1C,] Microalbumin, Dilated eye exam and Foot exam Jun, Hyperlipidemia, mixe d (ICD-10 - E78.2) Instructed on diet and exercise with continued statin therapy.Discussed the beneficial effects of lowering cholesterol in reducing the risk for cerebrovascular and cardiovascular disease. 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 Blanton Jun, Dupuytren's contract ure of hand (ICD-10 - M72.0) Stretching exercises - referral to Dr. Blanton Jun, Fatigue, unspecified type (ICD-10 - R53.83) Check labs: CBC, BS [facility] Other 09-19-2023 Evaluation note* Encounter Date Diagnosis Assessment Notes Treatment Notes Treatment Clinical Notes Jun, Type 2 diabetes mellitus with diabetic polyneuropathy, without long-term current use of insulin (ICD-10 - E11.42) [facility] Other 08-25-2023 Evaluation note* Encounter Date Diagnosis Assessment Notes Treatment Notes Treatment Clinical Notes May, Type 2 diabetes mellitus with diabetic polyneuropathy, without long-term current use of insulin (ICD-10 - E11.42) [facility] Other 05-04-2023 Evaluation note* Encounter Date Diagnosis Assessment Notes Treatment Notes Treatment Clinical Notes February, Type 2 diabetes mellitus with hyperglycemia, without long-term current use of insulin (ICD-10 - E11.65) [facility] Other 01-20-2023 Evaluation note* Encounter Date Diagnosis Assessment Notes Treatment Notes Treatment Clinical Notes Oct, Essential hypertension (ICD-10 - I10) This patient is instructed to consume a healthy, low-fat, low-salt diet. They are also encouraged to continue exercise to achieve/maintain a normal BMI. Oct, Hyperlipidemia, mixed (ICD-10 - E78.2) Diet and exercise with continued statin therapy. Oct, Type 2 diabetes mellitus with hyperglycemia, without long-term current use of insulin (ICD-10 - E11.65) This patient is following a comprehensive diabetic treatment plan. They are checking their feet daily for calluses and nonhealing ulcers. They are being seen for yearly dilated eye examinations. Goals: SBP less than 130, LDL less than 100, FBS less than 140, AC and A1C less than 7%. They are checking their BS daily, will which are reviewed at the office visit. A1C 7.7%, despite improvement, not at goal of < 7%. - increase ROSS to 1 1/2 tabs daily along w/ Metformin. - recheck A1C in 3-4mo - reduce carbs, calories Oct, Type 2 diabetes mellitus with diabetic polyneuropathy, without long-term current use of insulin (ICD-10 - E11.42) Inspect feet daily for cuts and calluses. Walk daily. Fall precautions. Oct, TOMEKA (generalized anxiety disorder) (ICD-10 - F41.1) healthy diet, exercise and keep active. Continue SSRI w/ improved mood and sleep Oct, Chronic venous insufficiency (ICD-10 - I87.2) Avoid salt and elevate lower extremities, support stockings, inspect legs and feet daily for blisters and ulcerations. Oct, Trigger index finger of right hand (ICD-10 - M65.321) Voltaren Gel, ROM exercises. Discussed OT/PT and referral to hand specialist. Oct, Dupuytren contracture (ICD-10 - M72.0) Stretch, massage. If becomes painful would refer to Dr. Blanton [facility] Other 09-04-2022 Evaluation note* Encounter Date Diagnosis Assessment Notes Treatment Notes Treatment Clinical Notes Jun, Contact with and (suspected) exposure to covid-19 (ICD-10 - Z20.822) Jun, COVID-19 (ICD-10 - U07.1) Discharge Instructions for COVID-19 (Suspected or Confirmed ) material was printed Drink plenty fluids, get plenty of rest. Take Tylenol or Motrin as needed for aches pains or fevers. You must quarantine for 5 days after the onset of your symptoms of COVID. Follow-up with your family physician if no improvement in 2 to 3 days. [facility] Other 04-04-2022 Evaluation note* Encounter Date Diagnosis Assessment Notes Treatment Notes Treatment Clinical Notes Jan, Chronic pain (ICD-10 - G89.29) Follow up after procedure. 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 He reports 95% pain relief following trigger point injection to the right interscapular muscles under ultrasound guidance. He voices complaints of mid back pain which radiates to the chest wall on the right. Discussed with patient different treatment options, patient is a candidate for an intercostal nerve block on the right. Risks and benefits of procedure explained to patient; patient verbalizes understanding. Jan, Myofascial pain (ICD-10 - M79.18) Patients interscapular tenderness is significantly improved following the trigger point injection. [facility] Other 03-07-2022 Evaluation note* Encounter Date Diagnosis Assessment Notes Treatment Notes Treatment Clinical Notes Dec, Mid back pain (ICD-10 - M54.9) 66 year old male here for follow up for chronic pain. He continues to complain of right interscapular pain. He feels pain can negatively impact his ADL's and sleep pattern. Different treatment options were discussed in detail with the patient, and I recommend we proceed with a trigger point injection to the right interscapular muscles under ultrasound guidance today in the office. Risks and benefits of procedure explained to patient; patient verbalizes understanding. Dec, Chronic pain (ICD-10 - G89.29) Trigger injection done today. Follow up in 2-3 weeks [facility] Other 03-02-2022 Evaluation note* Encounter Date Diagnosis Assessment Notes Treatment Notes Treatment Clinical Notes Dec, Mid back pain (ICD-10 - M54.9) Proceed with trigger point injection next week. Dec, Myofascial pain (ICD-10 - M79.18) 66 year old male here for follow up for chronic pain. He voices complaints of right upper back pain with radiation to the right chest wall. He had a trigger point injection to his thoracic region 4 months ago which provided him with 70-80% relief of pain until recently. I recommend proceeding this trigger point injection next week to provide him with some pain relief. Dec, Cervical spondylosis (ICD-10 - M47.812) Stable. Patient voices no complaints of neck pain today Dec, Chronic pain (ICD-10 - G89.29) Continue medications as prescribed [facility] Other 12-13-2021 Evaluation note* Encounter Date Diagnosis Assessment Notes Treatment Notes Treatment Clinical Notes Sep, Mid back pain (ICD-10 - M54.9) 65 year old male here for follow up staus post trigger point injection to the right thoracic area under ultrasound guidance. Patient reports 70% pain relief following procedure. He voices complaints of intermittent pain on the right side of the chest wall. He feels pain is tolerable at this time. Different treatment options were discussed in detail with the patient, overall, he appears to be doing very well and does not require further treatment at this time. He is encouraged to use TENS unit as directed for pain. He can call the office if his pain returns. Sep, Cervical spondylosis (ICD-10 - M47.812) Stable. Patient voices no complaints of neck pain today Sep, Chronic pain (ICD-10 - G89.29) Continue medications as prescribed [facility] Other 11-11-2021 Evaluation note* Encounter Date Diagnosis Assessment Notes Treatment Notes Treatment Clinical Notes Aug, Cervical spondylosis (ICD-10 - M47.812) Consider cervical facet medial branch nerve blocks in the future. Aug, Myofascial pain (ICD-10 - M79.18) 65 y/o male here for follow up to review his recent imaging. He voices complaints of mid back pain.He states at times his pain feels like a burning sensation. I independently reviewed his recent thoracic spine MRI which shows no evidence of stenosis or significant degeneration. I recommend proceeding with a trigger point injection today as previously discussed. In the meantime he can use OTC Voltaren gel as needed. I will add a TENS unit as needed. Aug, Mid back pain (ICD-10 - M54.9) Aug, Chronic pain (ICD-10 - G89.29) Stable, follow up in 4 weeks. [facility] Other 10-28-2021 Evaluation note* Encounter Date Diagnosis Assessment Notes Treatment Notes Treatment Clinical Notes Jul, Cervical spondylosis (ICD-10 - M47.812) Patient reports 50-60% pain relief for 6 hours following procedure Jul, Mid back pain (ICD-10 - M54.9) 65 year old male here for follow up status post cervical facet medial branch block right at C3, C4, C5 and C6 under fluoroscopic guidance. Patient reports 50-60% pain relief and increased function for 6 hours following procedure. He voices continued complaints of right sided interscapular pain with radiation to the chest wall. He also voices complaints of numbness to the area as well as increased itching. He denies previous shingles or rash to the area. Different treatment options were discussed in detail with the patient, and I will order updated imaging of the thoracic spine to further evaluate his pain. If his pain persists, we can consider proceeding with a trigger injection to the right thoracic paraspinal muscles int he future Jul, Chronic pain (ICD-10 - G89.29) Continue with current treatment plan [facility] Other 2021 Evaluation note* Encounter Date Diagnosis Assessment Notes Treatment Notes Treatment Clinical Notes Jul, Cervical spondylosis (ICD-10 - M47.812) 65 year old male presents with complaints of right sided neck and interscapular pain with intermittent radiation to the right upper extremity. He states pain has been present for 10 months with no known inciting trauma. He describes pain as stabbing. He denies previous pain management, but states he did try physical therapy which only aggravated his pain. Prior to examining the patient, I reviewed progress notes from his referring provider, Dr Pedersen. I also independently reviewed previous imaging of the cervical spine and I agree with radiology interpretation. Different treatment options were discussed in detail with the patient, and I recommend we proceed with a right cervical facet medial branch nerve block under fluoroscopic guidance. Risks and benefits of procedure explained to patient; patient verbalizes understanding. Jul, DDD (degenerative disc disease), cervical (ICD-10 - M50.30) Proceed with current treatment plan Jul, Chronic pain (ICD-10 - G89.29) Patient is advised to hold his Aspirin for 4-5 days prior to procedure Jul, Other Medical deci carolyn making shows a new problem to me with further workup planned or suggested with the potential for extensive treatment options that were considered with the most applicable given this patient's situation as noted above. Treatment options considered include a combination of physical therapy approaches, pharmacologic management, and interventional procedures. Those most applicable to the patient were discussed at this time. Risk of complications and/or morbidity and mortality is high given that acute and chronic pain poses a threat to life and bodily function if undertreated, poorly treated or with failure to maintain adequate treatment and timely followup. Given the serious and fluctuating nature of pain with extensive consideration for whenever pain changes, there always remains the possibility of prolonged functional impairment requiring constant patient reassessment and high-level medical decision making. The amount and complexity of data reviewed is high given that patient labs, radiology reports, and other test were obtained, reviewed and summarized as applicable from the physician portal and/or outside medical records. Pertinent positive and negative findings were considered in medical decision-making. [facility] Other 10-21-2014 History general Narrative - Reported* Type Description Date Medical History Cholesterol Medical History Arthritis Surgical History Bilateral TKA 08/07/14 Surgical History hernia repair Hospitalization History see above, rehab stay [facility] Other 10-21-2014 History general Narrative - Reported* Type Description Date Medical History Cholesterol Medical History Arthritis Medical History type II diabetes Surgical History Bilateral TKA 08/07/14 Surgical History hernia repair Hospitalization History see above, rehab stay [facility] Other Evaluation noteNo InformationNort Lucibel Other History general Narrative - Reported* Type Description Date Medical History Body mass index (BMI) of 25.0 to 29.9 Medical History High risk medication use Medical History Screening PSA (prostate specific antigen) Medical History Depression screening Medical History Cervical neuralgia Medical History Hyperlipidemia, mixed Medical History Essential hypertension Medical History Type 2 diabetes kacie itus with hyperglycemia, without long-term current use of insulin Medical History TOMEKA (generalized anxiety disorde r) Medical History Type 2 diabetes kacie itus with diabetic polyneuropathy, without long-term current use of insulin Medical History Neoplasm of unspecif ied behavior of bone, soft tissue, and skin Medical History Cervical spondylosis with radicu lopathy Medical History Erectile dysfunction due to veronika rial insufficiency Medical History Elevated transaminase level Medical History Benign prostatic hyp erplasia with lower urinary tract symptoms Medical History Nocturia Medical History Chronic venous insufficiency Medical History Nicotine dependence, cigarettes, in remission Medical History Acute maxillary sinusitis, unspe cified Surgical History Bilateral TKA 08/07/14 Surgical History hernia repair Surgical History EXCISION OF LIPOMA 2001 Hospitalization History see above, rehab stay [facility] 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 Chavira has O A involving the MCP joint of his right index finger. His discomfort has started to interfere w/ ADL and golf. He also has mild Duyputren's contracture involving the right hand. [facility] Other Summary Purpose Family History No Family History Records FoundNo Family History Records Found Advance Directives No Advanced Directives Records FoundNo Advanced Directives Records Found Additional Source Comments REASON FOR VISIT (unrecogniz ed section and content) [facility] WITH RADICULOPATHYRIGHT CERVICAL FACET MEDIAL BRANCH NERVE BLOCK C3-4, C4-5, C5-6/ELFOLLOW UP AFER RIGHT CERVICAL MBBfollow up after mri/poss thoracic triggerfollow up after trigger point injectionINCREASE UPPER BACK PAINtrigger point injection to right thoracic areaFOLLOW UP AFTER TRIGGER TO RIGHT INTERSCAPULAR MUSCLEright intercostal nerve blockGRAY HONDA CRV, SORE THROAT, SINUS CONGESTION, COUGH6 MONTH FOLLOW UPLab ResultsrefillNo InformationLab ResultsrefillMWERefillRefillRefillTooth Abscess- Swollen FaceLab results (unrecognized sect ion and content) No Status Records FoundNo Status Records Found INFORMATION SOURCE (unrecogn ized section and content) DATE CREATED AUTHOR 07/19/2022 [facility] DATE CREATED AUTHOR AUTHOR'S ORGANIZ ATION 12/25/2023 [facility] FOR RECORDS PERTAINING TO PATIENTS WHO ARE OR HAVE BEEN ENROLLED IN A CHEMICAL DEPENDENCY/SUBSTANCEABUSE PROGRAM, SOME INFORMATION MAY BE OMITTED. This clinical summary was aggregated from multiple sources. Caution should be exercised in using it in the provision of clinical care. This summary normalizes information from multiple sources, and as a consequence, information in this document may materially change the coding, format and clinical context of patient data. In addition, data may be omitted in some cases. CLINICAL DECISIONS SHOULD BE BASED ON THE PRIMARY CLINICAL RECORDS. [employer] provides no warranty or guarantee of the accuracy or completeness of information in this document.
[2024-06-12 14:36] LABS: Estimated Average Glucose 206 mg/dL; Glycohemoglobin A1C 8.8 % (4.5-6.2)
== END 2024-06-12 12:44 | disposition home or self-care (01) ==
LOC: LAB 12:44
PROVIDERS: PCP Internal Medicine; Visit Provider Internal Medicine
DX: E11.42 Type 2 diabetes mellitus with diabetic polyneuropathy (principal)
CPT/HCPCS: 36415; 83036

== ENCOUNTER 2024-11-16 12:38 | Outpatient (OUT) | payer MEDICARE, OTHER, SELFPAY ==
--- OUTSIDE RECORDS SUMMARY | 2024-11-16 12:43 | XMS_ITS | CCD ---
Author Organization [facility] Care Team Providers Care Meals On Wheels Driver Name Role Phone Darvin Kothari Unavailable Kassi [...] (20 sources) Penicillin V Drug Allergy Unknown [facility] Other (3 sources) patient allergy list reviewed by nurse or physicia Propensity to adverse reactions 3 Comment:Done [facility] Other (1 source) Penicillin Drug Allergy 4 [facility] Repository (1 source) Penicillins Drug allergy (disorder) 4 [facility] Repository Medications Current Medications Medication Drug Class(es) [...] hand] Chronic Other aftercare (1 source) Other correction (current) drug therapy; Translations: [OTH DETENTION CURRENT DRUG THERAPY] Onset: 07-08-2022 Episodic Other aftercare (12 sources) H/O: high risk medication; Translations: [Other tank terminal gauger (current) drug therapy] Episodic Other aftercare (3 sources) Long-term current use of drug therapy; Translations: [Other correction (current) drug therapy] Episodic Other circulatory disease [...] 3V*on 024 XR hand RT min 3V* [facility] Main [place] [address] [place] [address] XRay Report Signed Patient: Max Chavira MR#: [id number] : 1955 Acct:[id number] Age/Sex: 68 / M ADM Date: 12/22/23 Loc: [facility] Room: Type: [facility] Attending Dr: Lainey Blanton MD Copies to: [...] Leung Jr., D.OFran12/22/2023 3:45 PM Dictation Location: [place] [address] Transcribed By: [facility] 12/22/23 1545 Dictated By: Edwin Leung Jr, DO 12/22/23 1544 Signed By: 12/22/23 1545 Normal [facility] MICROALBUMIN URINEon 022 Albumin, Urine 52.2 ug/mL Normal Not Estab. [facility] Comment on above: Performed By: #### M ALBLC #### [facility] [address] [place] [address] Dr. Anne-Marie Parikh CBC AUTO DIFFon 07-07-2022 BASO # 0.0 103/ul Normal 0.0-0.1 [facility] Comment on above: Performed By: #### C BC #### [facility] [address] [place] [address] Dr. Anne-Marie Parikh Basophils/100 WBC (Bld) 0.6 % Normal 0.2-2.[address] [facility] Comment on above: Performed By: #### C BC #### [facility] [address] [place] [address] Dr. Anne-Marie Parikh EO # 0.1 103/ul Normal 0.0-0.[address] [facility] Comment on above: Performed By: #### C BC #### [facility] [address] [place] [address] Dr. Anne-Marie Parikh Eosinophils/100 WBC (Bld) 1.9 % Normal 0.9-7.0 [facility] Comment on above: Performed By: #### C BC #### [facility] [address] [place] [address] Dr. Anne-Marie Parikh Erythrocyte distribution width (RBC) [Ratio] 11.9 % Normal 11.0-15.0 [facility] Comment on above: Performed By: #### C BC #### [facility] [address] [place] [address] Dr. Anne-Marie Parikh Hematocrit (Bld) [Volume fraction] 43.1 % Normal 42.0-54.[address] [facility] Comment on above: Performed By: #### C BC #### [facility] [address] [place] [address] Dr. Anne-Marie Parikh Hemoglobin (Bld) [Mass/Vol] 14.0 g/dL Normal 14.0-18.0 [facility] Comment on above: Performed By: #### C BC #### [facility] [address] [place] [address] Dr. Anne-Marie Parikh IG # 0.03 10e3/ul Normal 0.00-0.[address] [facility] Comment on above: Performed By: #### C BC #### [facility] [address] [place] [address] Dr. Anne-Marie Parikh IG % 0.4 % Normal 0.0-0.[address] [facility] Comment on above: Performed By: #### C BC #### [facility] [address] [place] [address] Dr. Anne-Marie Parikh LYMPH # 1.5 103/ul Normal 1.2-3.8 [facility] Comment on above: Performed By: #### C BC #### [facility] [address] [place] [address] Dr. Anne-Marie Parikh Lymphocytes/100 WBC (Bld) 21.1 % Normal 20.5-60.0 [facility] Comment on above: Performed By: #### C BC #### [facility] [address] [place] [address] Dr. Anne-Marie Parikh MANUAL DIFF REQ NO Normal [facility] Comment on above: Performed By: #### C BC #### [facility] [address] [place] [address] Dr. Anne-Marie Parikh MCH (RBC) [Entitic mass] 29.5 pg Normal 25.9-34.0 [facility] Comment on above: Performed By: #### C BC #### [facility] [address] [place] [address] Dr. Anne-Marie Parikh MCHC (RBC) [Mass/Vol] 32.5 g/dL Normal 29.9-35.2 [facility] Comment on above: Performed By: #### C BC #### [facility] [address] [place] [address] Dr. Anne-Marie Parikh MCV (RBC) [Entitic vol] 90.9 fL Normal 80.0-94.0 [facility] Comment on above: Performed By: #### C BC #### [facility] [address] [place] [address] Dr. Anne-Marie Parikh MONO # 0.5 103/ul Normal 0.3-0.8 [facility] Comment on above: Performed By: #### C BC #### [facility] [address] [place] [address] Dr. Anne-Marie Parikh Monocytes/100 WBC (Bld) 6.5 % Normal 1.7-12.0 [facility] Comment on above: Performed By: #### C BC #### [facility] [address] [place] [address] Dr. Anne-Marie Parikh NEUT # 5.0 103/ul Normal 1.4-6.5 [facility] Comment on above: Performed By: #### C BC #### [facility] [address] [place] [address] Dr. Anne-Marie Parikh Neutrophils/100 WBC (Bld) 69.5 % Normal 43.0-75.0 [facility] Comment on above: Performed By: #### C BC #### [facility] [address] [place] [address] Dr. Anne-Marie Parikh Platelet mean volume (Bld) [Entitic vol] 10.3 fL Normal 9.5-13.5 [facility] Comment on above: Performed By: #### C BC #### [facility] [address] [place] [address] Dr. Anne-Marie Parikh PLT 227 103/ul Normal 150-450 [facility] Comment on above: Performed By: #### C BC #### [facility] [address] [place] [address] Dr. Anne-Marie Parikh RBC 4.74 106/ul Normal 4.70-6.10 [facility] Comment on above: Performed By: #### C BC #### [facility] [address] [place] [address] Dr. Anne-Marie Parikh WBC 7.2 103/ul Normal 4.0-11.0 [facility] Comment on above: Performed By: #### C BC #### [facility] [address] [place] [address] [address] Anne-Marie Parikh GLYCOHEMOGLOBIN A1Con 2021 ADA RECOMMENDATION SEE BELOW Normal [facility] Comment on above: Result Comment: ADA RECOMMENDED LIMIT 4.0 - 6.0 ADA THERAPEUTIC TARGET < 7.0 ACTION SUGGESTED > 7.0 Performed By: #### A 1C #### [facility] [address] [place] [address] [address] Anne-Marie Parikh Glucose [Mass/Vol] 180 mg/dL Normal [facility] Comment on above: Performed By: #### A 1C #### [facility] [address] [place] [address] Dr. Anne-Marie Parikh HbA1c (Bld) [Mass fraction] 7.9 % Critically high 4.5-6.[address] [facility] Comment on above: Performed By: #### A 1C #### [facility] [address] [place] [address] Dr. Anne-Marie Parikh LIPID PROFILEon 07-07-2022 CHOL-HDL RATIO NORM SEE BELOW Normal [facility] Comment on above: Result Comment: 3.3 - 4.4 LOW RISK 4.4 - 7.1 AVERAGE RISK 7.1 - 11.0 MODERATE RISK >11.0 HIGH RISK Performed By: #### A LT, LIPID, BMP #### [facility] [address] [place] [address] Dr. Anne-Marie Parikh Cholesterol [Mass/Vol] 143 mg/dL Normal <=[address] [facility] Comment on above: Performed By: #### A LT, LIPID, BMP #### [facility] [address] [place] [address] Dr. Anne-Marie Parikh Cholesterol in HDL [Mass/Vol] 48 mg/dL Normal 40-[address] [facility] Comment on above: Performed By: #### A LT, LIPID, BMP #### [facility] [address] [place] [address] Dr. Anne-Marie Parikh Cholesterol in LDL [Mass/Vol] 73.4 mg/dL Normal [facility] Comment on above: Performed By: #### A LT, LIPID, BMP #### [facility] [address] [place] [address] [address] Anne-Marie Parikh Cholesterol.total/Ch olesterol in HDL [Mass ratio] 3.0 {ratio} Normal [facility] Comment on above: Performed By: #### A LT, LIPID, BMP #### [facility] [address] [place] [address] [address] Anne-Marie Parikh HDL NORMAL > or = 60 mg/dl - LOW CARDIOVASCULAR RISK <40 mg/dl - HIGH CARDIOVASCULAR RISK Normal [facility] Comment on above: Performed By: #### A LT, LIPID, BMP #### [facility] [address] [place] [address] Dr. Anne-Marie Parikh LDL CALC NORMAL SEE BELOW Normal [facility] Comment on above: Result Comment: <100 mg/dl OPTIMAL 100 - 129 mg/dl NEAR OR ABOVE OPTIMAL 130 - 159 mg/dl BORDERLINE HIGH 160 - 189 mg/dl HIGH >190 mg/dl VERY HIGH Performed By: #### A LT, LIPID, BMP #### [facility] [address] [place] [address] Dr. Anne-Marie Parikh Triglyceride [Mass/Vol] 108 mg/dL Normal <=[address] [facility] Comment on above: Performed By: #### A LT, LIPID, BMP #### [facility] [address] [place] [address] Dr. Anne-Marie Parikh VLDL CALC 21.6 mg/dL Normal [facility] Comment on above: Performed By: #### A LT, LIPID, BMP #### [facility] [address] [place] [address] Dr. Anne-Marie Parikh PROF CHEM 8 (BAS METB)on Anion gap [Moles/Vol] 12.0 mmol/L Normal [facility] Comment on above: Performed By: #### A LT, LIPID, BMP #### [facility] [address] [place] [address] Dr. Anne-Marie Parikh Calcium [Mass/Vol] 9.0 mg/dL Normal 8.5-10.1 [facility] Comment on above: Performed By: #### A LT, LIPID, BMP #### [facility] [address] [place] [address] [address] Anne-Marie Parikh Chloride [Moles/Vol] 104 mmol/L Normal 98-[address] [facility] Comment on above: Performed By: #### A LT, LIPID, BMP #### [facility] [address] [place] [address] [address] Anne-Marie Parikh CO2 [Moles/Vol] 28.2 mmol/L Normal 21.0-32.0 [facility] Comment on above: Performed By: #### A LT, LIPID, BMP #### [facility] [address] [place] [address] [address] Anne-Marie Parikh Creatinine [Mass/Vol] 0.88 mg/dL Normal 0.70-1.[address] [facility] Comment on above: Performed By: #### A LT, LIPID, BMP #### [facility] [address] [place] [address] Dr. Anne-Marie Parikh EGFR-AF THAI >60 Normal >=60 [facility] Comment on above: Performed By: #### A LT, LIPID, BMP #### [facility] [address] [place] [address] Dr. Anne-Marie Parikh EGFR-NON AF THAI >60 Normal >=[address] [facility] Comment on above: Performed By: #### A LT, LIPID, BMP #### [facility] [address] [place] [address] [address] Anne-Marie Parikh Glucose [Mass/Vol] 190 mg/dL Critically high 74-106 [facility] Comment on above: Performed By: #### A LT, LIPID, BMP #### [facility] [address] [place] [address] [address] Anne-Marie Parikh Potassium [Moles/Vol] 4.2 mmol/L Normal 3.5-5.[address] [facility] Comment on above: Performed By: #### A LT, LIPID, BMP #### [facility] [address] [place] [address] [address] Anne-Marie Parikh Sodium [Moles/Vol] 140 mmol/L Normal 136-145 [facility] Comment on above: Performed By: #### A LT, LIPID, BMP #### [facility] [address] [place] [address] [address] Anne-Marie Parikh Urea nitrogen [Mass/Vol] 10.0 mg/dL Normal 7.0-18.[address] [facility] Comment on above: Performed By: #### A LT, LIPID, BMP #### [facility] [address] [place] [address] [address] Anne-Marie Parikh Urea nitrogen/Creatinine [Mass ratio] 11.4 mg/mg Normal [facility] Comment on above: Performed By: #### A LT, LIPID, BMP #### [facility] [address] [place] [address] [address] Anne-Marie Parikh [facility] 07-07-2022 ALT [Catalytic activity/Vol] 45 U/L Normal 16-[address] [facility] Comment on above: Performed By: #### A LT, LIPID, BMP #### [facility] [address] [place] [address] [address] Anne-Marie Parikh SARS-CoV-2 (COVID-19) RNA NA A+probe Ql (Resp)on 06-21-2022 SARS-CoV-2 (COVID-19) RNA NADJA+probe Ql (Unsp spec) Positive [facility] Other Vital Signs Date Time Vital Sign Value Performing Clinician Facility 09-10-2023 11:45-0500 Body height 184.78 cm Eugene Chevia Other [facility] Other 09-10-2023 11:45-0500 Body mass index (BMI) [Ratio] 30.79 kg/m2 Eugene Chevia Other [facility] Other 09-10-2023 11:45-0500 Body weight 105.14 kg Eugene Chevia Other [facility] Other 09-10-2023 11:45-0500 Diastolic blood pressure 71 mm[Hg] Eugene Chevia Other [facility] Other 09-10-2023 11:45-0500 Systolic blood pressure 116 mm[Hg] Eugene Ball Other [facility] Other 07-09-2023 09:30-0400 Body height 184.78 cm Eugene Ball Other [facility] Other 07-09-2023 09:30-0400 Body mass index (BMI) [Ratio] 30.39 kg/m2 Eugene Ball Other [facility] Other 07-09-2023 09:30-0400 Body weight 103.78 kg Eugene Ball Other [facility] Other 07-09-2023 09:30-0400 Diastolic blood pressure 75 mm[Hg] Eugene Ball Other [facility] Other 07-09-2023 09:30-0400 Respiratory rate 12 /min Eugene Ball Other [facility] Other 07-09-2023 09:30-0400 Systolic blood pressure 129 mm[Hg] Eugene Ball Other [facility] Other 11-06-2022 10:00-0500 Body height 184.78 cm Eugene Ball Other [facility] Other 11-06-2022 10:00-0500 Body mass index (BMI) [Ratio] 28.98 kg/m2 Eugene Ball Other [facility] Other 11-06-2022 10:00-0500 Body weight 98.98 kg Eugene Ball Other [facility] Other 11-06-2022 10:00-0500 Diastolic blood pressure 62 mm[Hg] Eugene Ball Other [facility] Other 11-06-2022 10:00-0500 Respiratory rate 12 /min Eugene Ball Other [facility] Other 11-06-2022 10:00-0500 Systolic blood pressure 112 mm[Hg] Eugene Ball Other [facility] Other 06-21-2022 15:10-0400 Body height 184.78 cm Kassi Ramirez Other [facility] Other 06-21-2022 15:10-0400 Body mass index (BMI) [Ratio] 28.03 kg/m2 Kassi Ashley Other [facility] Other 06-21-2022 15:10-0400 Body temperature 97.1 [degF] Kassi Carrizalesmond Other [facility] Other 06-21-2022 15:10-0400 Body weight 95.71 kg Kassi Carrizalesmond Other [facility] Other 06-21-2022 15:10-0400 Respiratory rate 18 /min Kassi Carrizalesmond Other [facility] Other 06-21-2022 15:10-0400 SaO2% (BldA) [Mass fraction] 94 % Kassi Carrizalesmond Other [facility] Other 01-19-2022 17:30-0400 Body height 184.78 cm Darvin Kothari Other [facility] Other 01-19-2022 17:30-0400 Body mass index (BMI) [Ratio] 28.08 kg/m2 Darvin Kothari Other [facility] Other 01-19-2022 17:30-0400 Body weight 95.89 kg Darvin Kothari Other [facility] Other 01-19-2022 17:30-0400 Diastolic blood pressure 62 mm[Hg] Darvin Taye Other [facility] Other 01-19-2022 17:30-0400 SaO2% (BldA) [Mass fraction] 97 % Darvin Taye Other [facility] Other 01-19-2022 17:30-0400 Systolic blood pressure 104 mm[Hg] Darvin Taye Other [facility] Other 12-22-2021 17:00-0500 Body height 184.78 cm Darvin Kothari Other [facility] Other 12-22-2021 17:00-0500 Diastolic blood pressure 60 mm[Hg] Darvin Taye Other [facility] Other 12-22-2021 17:00-0500 SaO2% (BldA) [Mass fraction] 97 % Darvin Taye Other [facility] Other 12-22-2021 17:00-0500 Systolic blood pressure 110 mm[Hg] Darvin Taye Other [facility] Other 12-17-2021 14:00-0500 Body height 184.78 cm Darvin Kothari Other [facility] Other 12-17-2021 14:00-0500 Body mass index (BMI) [Ratio] 28.61 kg/m2 Darvin Kothari Other [facility] Other 12-17-2021 14:00-0500 Body weight 97.71 kg Darvin Kothari Other [facility] Other 12-17-2021 14:00-0500 Diastolic blood pressure 68 mm[Hg] Darvin Taye Other [facility] Other 12-17-2021 14:00-0500 SaO2% (BldA) [Mass fraction] 95 % Darvin Kothari Other [facility] Other 12-17-2021 14:00-0500 Systolic blood pressure 124 mm[Hg] Darvin Kothari Other [facility] Other 09-29-2021 17:45-0500 Body height 184.78 cm Darvin Kothari Other [facility] Other 09-29-2021 17:45-0500 Body mass index (BMI) [Ratio] 27.89 kg/m2 Darvinrufina Kothari Other [facility] Other 09-29-2021 17:45-0500 Body weight 95.26 kg Darvin Kothari Other [facility] Other 09-29-2021 17:45-0500 SaO2% (BldA) [Mass fraction] 98 % Darvin Kothari Other [facility] Other 08-28-2021 17:15-0500 Body height 184.78 cm Darvin Kothari Other [facility] Other 08-28-2021 17:15-0500 Body mass index (BMI) [Ratio] 27.76 kg/m2 Darvin Kothari Other [facility] Other 08-28-2021 17:15-0500 Body weight 94.8 kg Darvin Kothari Other [facility] Other 08-28-2021 17:15-0500 Diastolic blood pressure 80 mm[Hg] Darvin Kothari Other [facility] Other 08-28-2021 17:15-0500 Systolic blood pressure 110 mm[Hg] Darvin Kothari Other [facility] Other 08-14-2021 17:45-0400 Body height 184.78 cm Darvin Kothari Other [facility] Other 08-14-2021 17:45-0400 Body mass index (BMI) [Ratio] 28.19 kg/m2 Darvin Kothari Other [facility] Other 08-14-2021 17:45-0400 Body weight 96.25 kg Darvin Kothari Other [facility] Other 08-14-2021 17:45-0400 Diastolic blood pressure 72 mm[Hg] Darvin Kothari Other [facility] Other 08-14-2021 17:45-0400 Respiratory rate 18 /min Darvin Kothari Other [facility] Other 08-14-2021 17:45-0400 SaO2% (BldA) [Mass fraction] 95 % Darvin Kothari Other [facility] Other 08-14-2021 17:45-0400 Systolic blood pressure 126 mm[Hg] Darvin Kothari Other [facility] Other 08-01-2021 12:00-0400 Body height 184.78 cm Darvin Kothari Other [facility] Other 08-01-2021 12:00-0400 Body mass index (BMI) [Ratio] 28.16 kg/m2 Darvin Kothari Other [facility] Other 08-01-2021 12:00-0400 Body weight 96.16 kg Darvin Kothari Other [facility] Other 08-01-2021 12:00-0400 Diastolic blood pressure 80 mm[Hg] Darvin Kothari Other [facility] Other 08-01-2021 12:00-0400 Systolic blood pressure 134 mm[Hg] Darvin Kothari Other [facility] Other Encounters Encounter Date Encounter Type Care Provider Facility Start: 12-22-2023 End: 12-22-2023 ambulatory Lainey Blanton Facility:[facility] Start: 10-16-2023 End: 10-16-2023 ambulatory Eugene Culver Other [facility] Other Start: 10-16-2023 Telephone encounter Eugene Culver [facility] Start: 09-10-2023 End: 09-10-2023 ambulatory Eugene Ball Other [facility] Other Start: 09-10-2023 Office outpatient vi sit 15 minutes Eugene Israel [facility] Start: 08-02-2023 End: 08-02-2023 ambulatory Eugene Ball Other [facility] Other Start: 08-02-2023 Telephone encounter Eugene Culver [facility] Start: 07-22-2023 End: 07-22-2023 ambulatory Eugene Ball Other [facility] Other Start: 07-22-2023 Telephone encounter Eugene Culver [facility] Start: 07-14-2023 End: 07-14-2023 ambulatory Eugene Ball Other [facility] Other Start: 07-14-2023 Telephone encounter Eugene Ball [facility] Start: 07-09-2023 End: 07-09-2023 ambulatory Eugene Ball Other [facility] Other Start: 07-09-2023 Patient encounter procedure Eugene Culver [facility] Start: 07-06-2023 End: 07-06-2023 ambulatory Eugene Ball Other [facility] Other Start: 07-06-2023 Telephone encounter Eugene Ball [facility] Start: 06-14-2023 End: 06-14-2023 ambulatory Eugene Ball Other [facility] Other Start: 06-14-2023 Telephone encounter Eugene Ball [facility] Start: 06-11-2023 End: 06-11-2023 ambulatory Eugene Ball Other [facility] Other Start: 06-11-2023 Telephone encounter Eugene Ball [facility] Start: 02-18-2023 End: 02-18-2023 ambulatory Eugene Ball Other [facility] Other Start: 02-18-2023 Telephone encounter Eugene Ball [facility] Start: 11-09-2022 End: 11-09-2022 ambulatory Eugene Ball Other [facility] Other Start: 11-09-2022 Telephone encounter Eugene Ball [facility] Start: 11-06-2022 End: 11-06-2022 ambulatory Eugene Culver Other [facility] Other Start: 11-06-2022 Office outpatient vi sit 25 minutes Eugene LAW [facility] Start: 07-07-2022 End: 07-08-[address] EUGENE CULVER Facility: Start: 06-21-2022 End: 06-21-2022 ambulatory Kassi Ramirez Other [facility] Other Start: 06-21-2022 Office outpatient vi sit 25 minutes Kassi Ashley [facility] Start: 06-02-2022 Adult health examination Eugene Culver Other [facility] Other Start: 02-03-2022 (Procedure) Short Darvin Kothari [facility] Start: 02-03-2022 End: 02-03-2022 ambulatory Darvin Kothari Other [facility] Other Start: 01-19-2022 End: 01-19-2022 ambulatory Darvin Taye Other [facility] Other Start: 01-19-2022 Office outpatient vi sit 25 minutes Darvin Taye [facility] Start: 12-22-2021 End: 12-22-2021 ambulatory Darvinrufina Kothari Other [facility] Other Start: 12-22-2021 Patient encounter procedure Darvin Taye [facility] Start: 12-17-2021 End: 12-17-2021 ambulatory Darvin Taye Other [facility] Other Start: 12-17-2021 Office outpatient vi sit 25 minutes Darvin Taye [facility] Start: 09-29-2021 End: 09-29-2021 ambulatory Darvin Taye Other [facility] Other Start: 09-29-2021 Office outpatient vi sit 15 minutes Darvin Kothari [facility] Start: 08-28-2021 End: 08-28-2021 ambulatory Darvin Kothari Other [facility] Other Start: 08-28-2021 Office outpatient vi sit 25 minutes Darvin Kothari [facility] Start: 08-14-2021 Office outpatient vi sit 25 minutes Darvin Kothari [facility] Start: 08-07-2021 (Procedure) Short Darvin Kothari [facility] Start: 08-01-2021 Office outpatient ne w 45 minutes Darvin Kothari [facility] Procedures Date Procedure Procedure Detail Performing Clinician Start: 07-07-[address] [place] Comment on above: Performed By: #### [facility] #### [facility] [address] [place] [address] Dr. Anne-Marie Parikh Start: 06-25-2016 Screening for [...] 10-26-2022 COVID-19 Pfizer (bivalent) Eugene Culver Other [facility] Other 08-17-2022 influenza virus vaccine, split virus (incl. purified surface antigen) Eugene Culver Other [facility] Other 08-01-2021 COVID-19 Vaccine Pfi zer - Documentation Purposes Only Eugene Culver Other [facility] Other 07-08-2021 influenza virus vaccine, split virus (incl. purified surface antigen) Eugene Culver Other [facility] Other 03-29-2021 pneumococcal polysaccharide vaccine, 23 valent Eugene Culver Other [facility] Other 07-04-2020 influenza virus vaccine, split virus (incl. purified surface antigen) Eugene Culver Other [facility] Other 03-05-2020 pneumococcal conjuga te vaccine, 13 valent Eugene Culver Other [facility] Other Payers Date Payer Category Payer Self-pay 1961 Medicare [id number] [id number] [id number] 1961 Unknown [id number] 1955 Unknown [id number] Unknown [id number] Unknown [id number] Social History Date Type Detail Facility Sex Assigned At [facility] Other Medical Equipment Procedure Code Equipment Code Equipment Original Text Equi pment Identifier Dates Accu-Chek FastCl ix Lancet Drum Clinical Notes 08-07-2014 to 10-16-2023 Note Date & Type Note Facility 10-16-2023 Evaluation note Encounter Date Diagnosis Assessment Notes Sep, Type 2 diabetes mellitus with hyperglycemia , without long-term current use of insulin (ICD-10 - E11.65) [facility] Other [id number] Evaluation note* Encounter Date Diagnosis Assessment Notes [...] Microalbumin, Dilated eye exam and Foot exam [facility] Other 10-16-2023 Evaluation note* Encounter Date Diagnosis Assessment Notes Treatment Notes Treatment Clinical Notes Jul, Type 2 diabetes mellitus with hyperglycemia, without long-term current use of insulin (ICD-10 - E11.65) [facility] Other 10-05-2023 Evaluation note* Encounter Date Diagnosis Assessment Notes Treatment Notes Treatment Clinical Notes Jul, Type 2 diabetes mellitus with hyperglycemia, without long-term current use of insulin (ICD-10 - E11.65) [facility] Other 09-27-2023 Evaluation note* Encounter Date Diagnosis Assessment Notes Treatment Notes Treatment Clinical Notes Jun, Hyperlipidemia, mixed (ICD-10 - E78.2) [facility] Other 09-22-2023 Evaluation note* Encounter Date Diagnosis [...] (ICD-10 - R53.83) Check labs: CBC, BS [facility] Other 09-19-2023 Evaluation note* Encounter Date Diagnosis Assessment Notes Treatment Notes Treatment Clinical Notes Jun, Type 2 diabetes mellitus with diabetic polyneuropathy, without long-term current use of insulin (ICD-10 - E11.42) [facility] Other 08-25-2023 Evaluation note* Encounter Date Diagnosis Assessment Notes Treatment Notes Treatment Clinical Notes May, Type 2 diabetes mellitus with diabetic polyneuropathy, without long-term current use of insulin (ICD-10 - E11.42) [facility] Other 05-04-2023 Evaluation note* Encounter Date Diagnosis Assessment Notes Treatment Notes Treatment Clinical Notes February, Type 2 diabetes mellitus with hyperglycemia, without long-term current use of insulin (ICD-10 - E11.65) [facility] Other 01-20-2023 Evaluation note* Encounter Date Diagnosis [...] becomes painful would refer to Dr. Blanton [facility] Other 09-04-2022 Evaluation note* Encounter Date Diagnosis [...] no improvement in 2 to 3 days. [facility] Other 04-04-2022 Evaluation note* Encounter Date Diagnosis [...] significantly improved following the trigger point injection. [facility] Other 03-07-2022 Evaluation note* Encounter Date Diagnosis [...] done today. Follow up in 2-3 weeks [facility] Other 03-02-2022 Evaluation note* Encounter Date Diagnosis [...] (ICD-10 - G89.29) Continue medications as prescribed [facility] Other 12-13-2021 Evaluation note* Encounter Date Diagnosis [...] (ICD-10 - G89.29) Continue medications as prescribed [facility] Other 11-11-2021 Evaluation note* Encounter Date Diagnosis [...] G89.29) Stable, follow up in 4 weeks. [facility] Other 10-28-2021 Evaluation note* Encounter Date Diagnosis [...] - G89.29) Continue with current treatment plan [facility] Other 2021 Evaluation note* Encounter Date Diagnosis [...] negative findings were considered in medical decision-making. [facility] Other 10-21-2014 History general Narrative - Reported* Type Description Date Medical History Cholesterol Medical History Arthritis Surgical History Bilateral TKA 08/07/14 Surgical History hernia repair Hospitalization History see above, rehab stay [facility] Other 10-21-2014 History general Narrative - Reported* Type Description Date Medical History Cholesterol Medical History Arthritis Medical History type II diabetes Surgical History Bilateral TKA 08/07/14 Surgical History hernia repair Hospitalization History see above, rehab stay [facility] Other Evaluation noteNo InformationNort [employer]Greek Other History general Narrative - Reported* Type [...] 2001 Hospitalization History see above, rehab stay [facility] Other Reason for referral (narrative)* Reason Referral for OA MCP joint of right index finger and Dupuytren's contracture Diagnosis 1 Dupuytren contractur e (M72.0) Diagnosis 2 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 Chavira has O A involving the MCP joint of his right index finger. His discomfort has started to interfere w/ ADL and golf. He also has mild Duyputren's contracture involving the right hand. [facility] Other Summary Purpose Family History No Family History Records FoundNo Family History Records Found Advance Directives No Advanced Directives Records FoundNo Advanced Directives Records Found Additional Source Comments REASON FOR VISIT (unrecogniz ed section and content) [facility] RADICULOPATHYRIGHT CERVICAL FACET [...] and content) DATE CREATED AUTHOR [facility]/2022 [facility] DATE CREATED AUTHOR AUTHOR'S ORGANIZ ATION 12/25/2023 [facility] FOR RECORDS PERTAINING TO PATIENTS [...] BE BASED ON THE PRIMARY CLINICAL RECORDS. [employer] provides no warranty or guarantee of the accuracy or completeness of information in this document.
[2024-11-16 13:31] LABS: Basophils Percent Auto 0.4 % (0.2-2.0); Eosinophils Absolute Auto 0.2 10^3/uL (0.0-0.7); Eosinophils Percent Auto 2.8 % (0.9-7.0); Hematocrit 39.3 % (42.0-54.0); Hemoglobin 12.6 g/dL (14.0-18.0); Immature Granulocytes Abs Auto 0.01 10^3/uL (0.00-0.03); Immature Granulocytes Pct Auto 0.2 % (0.0-0.5); Lymphocytes Absolute Auto 1.4 10^3/uL (1.2-3.8); Lymphocytes Percent Auto 25.8 % (20.5-60.0); Mean Corpuscular HGB Conc 32.1 g/dL (29.9-35.2); Mean Corpuscular Hemoglobin 30.5 pg (25.9-34.0); Mean Corpuscular Volume 95.2 fL (80.0-94.0); Mean Platelet Volume 10.7 fL (9.5-13.5); Monocytes Absolute Auto 0.3 10^3/uL (0.3-0.8); Monocytes Percent Auto 6.2 % (1.7-12.0); Neutrophils Absolute Auto 3.4 10^3/uL (1.4-6.5); Neutrophils Percent Auto 64.6 % (43.0-75.0); Platelet Count 192 10^3/uL (150-450); Red Blood Count 4.13 10^6/uL (4.70-6.10); Red Cell Distribution Width 12.4 % (11.0-15.0); White Blood Count 5.3 10^3/uL (4.0-11.0)
[2024-11-16 13:42] LABS: Microalbumin Urine Random 3.4 mg/dL (<=30.0)
[2024-11-16 13:45] LABS: Estimated Average Glucose 163 mg/dL; Glycohemoglobin A1C 7.3 % (4.5-6.2)
[2024-11-16 14:07] LABS: Alanine Aminotransferase 32 U/L (16-63); Albumin Globulin Ratio 1.1; Albumin Level 3.9 g/dL (3.4-5.0); Alkaline Phosphatase 63 U/L (46-116); Anion Gap 11.3; Aspartate Amino Transferase 15 U/L (15-37); Bilirubin Total 0.6 mg/dL (0.2-1.0); Calcium 8.8 mg/dL (8.5-10.1); Chloride 103 mmol/L (98-107); Chol HDL Ratio 2.9; Cholesterol 135 mg/dL (<=200); Estimated GFR (African America >60 (>=60 mL/min/1.73m^2); Estimated GFR (Non-African Ame >60 (>=60 mL/min/1.73m^2); Globulin 3.4 g/dL; Glucose 171 mg/dL (74-106); HDL Cholesterol 46 mg/dL (40-60); LDL Cholesterol Calculated 66.6 mg/dL; Potassium 4.3 mmol/L (3.5-5.1); Sodium 140 mmol/L (136-145); Total Protein 7.3 g/dL (6.4-8.2); Triglycerides 112 mg/dL (<=150); VLDL CHOLESTEROL 22.4 mg/dL
[2024-11-16 14:18] LABS: Prostate Specific Antigen Scrn 1.07 ng/mL (<=4.00)
== END 2024-11-16 12:39 | disposition home or self-care (01) ==
LOC: LAB 12:40
PROVIDERS: PCP Internal Medicine; Visit Provider Internal Medicine
DX: E78.2 Mixed hyperlipidemia (principal); E11.42 Type 2 diabetes mellitus with diabetic polyneuropathy; Z12.5 Encounter for screening for malignant neoplasm of prostate; I10 Essential (primary) hypertension
CPT/HCPCS: 36415; 80053; 80061; 82043; 83036; 85025; G0103